=== PATIENT | male | born 1945 | race Caucasian/White ===

== ENCOUNTER → 2017-10-06 | Outpatient (CLI) | payer MEDICARE, OTHER ==
[~2017-10-06] MED LIST: AMLO10 PO; ASPI81CH PO; ATOR10 PO; CENTRUM COMPLE1 EACH PO; CHOL10002; DEXL60CA3; ESTER-C 1,0001 EACH PO; HYDCHL12.5 PO; INSLIS75I SC; NIAC500ER PO; Norco 10-325 T1 EACH PO; PIOG30 PO; RAMI5 PO; SITA100T2 PO
== END ==
LOC: LAB SHORT 09:00 → PLD 09:00
DX: L82.1 Other seborrheic keratosis (principal)
CPT/HCPCS: 88305

== ENCOUNTER → 2019-04-20 | Outpatient (CLI) | payer MEDICARE, OTHER ==
[2019-04-22 14:12] LABS: Stool Occult Bld Immuno 1 Negative (NEGATIVE); Stool Occult Bld Immuno 2 Negative (NEGATIVE)
== END | disposition home or self-care (01) ==
LOC: LAB EV 21:15
PROVIDERS: Internal Medicine Gastroenterology
DX: K57.90 Diverticulosis of intestine, part unspecified, without perforation or abscess without bleeding (principal); Z86.010 Personal history of colon polyps
CPT/HCPCS: 82274

== ENCOUNTER → 2020-08-30 | Outpatient (CLI) | payer MEDICARE, OTHER | LOC: LAB SHORT 12:05 → PLD 12:05 | DX: D48.5 Neoplasm of uncertain behavior of skin (principal); L82.1 Other seborrheic keratosis | CPT/HCPCS: 88305 ==